=== PATIENT | male | born 1945 | race Caucasian/White ===

== ENCOUNTER 2024-07-22 12:48 | Day surgery (SDC) | payer MEDICARE, OTHER, SELFPAY ==
[2024-07-22] VITALS (14 sets, daily range): BP systolic 131–168; BP diastolic 81–129; BMI 48.3
[2024-07-22] MEDS: NSS 458 ML IV (14:28)
[2024-07-22 16:15] LABS: ACT-LR - POC 311 Seconds (116-155)
--- NOTE | 2024-07-22 16:59 | ITS.CL.CATH ---
Litigation Legal Secretary - Catheterization
Cardiac Catheterization
Procedure Report:
CARDIAC CATHETERIZATION REPORT
Date of Procedure: 07/22/2024
Referring: Rboi De La Torre D.O.
INDICATION: Multiple CAD risk factors, abnormal stress test (apical ischemia), history of neuropathy with concern for impaired anginal warning system.
PROCEDURE:
1. Coronary angiography.
2. Successful IFR of OM1.
3. Successful IFR of proximal LAD.
A total of 42 minutes of procedural/moderate sedation was utilized. An independent paramedical aide was present to assist with and help manage the patient's level of consciousness and physiologic status.
ACCESS:
1. 6 [place] right radial artery using modified Seldinger technique.
2. 6 [place] right common femoral artery using a modified Seldinger technique with a micropuncture kit under ultrasound guidance.
CATHETERS:
1. 5 [place] JR4.
2. 5 [place] JL 4.
3. 6 [place] EBU 4.5 guiding catheter.
HEMODYNAMIC DATA
Weight (kg): 152.4
AO (s/d/x, mmHg): 130/81/95
LV (s/x mmHg): Not obtained.
LEFT VENTRICULOGRAPHY: Not performed.
CORONARY ANGIOGRAPHY
Dominance: Right.
Left Main: Normal size, bifurcating vessel. There is no coronary artery disease.
LAD: Normal size vessel giving rise to 2 significant diagonals. There is a 60-70% lesion in the proximal vessel. The apical LAD is chronically totally occluded.
Ramus: Congenitally absent.
Circumflex: Large size, nondominant vessel giving rise to 1 large marginal before terminating is a large posterolateral branch. There is a 60% lesion in the midportion of OM1.
RCA: Large size, dominant vessel. There are luminal irregularities including a 30% lesion in the ostium of the RPDA and a 30% lesion in the mid RPDA.
INTERVENTION(S)
1. Successful IFR of the 60% mid OM1 lesion, demonstrating nonocclusive disease (IFR = 0.95).
2. Successful IFR of the 60-70% lesion in the proximal LAD, demonstrating borderline disease (IFR = 0.90).
Narrative:
The decision was made to perform physiologic testing. The diagnostic catheter was removed over a wire and exchanged for a(n) 6 [place] EBU 4.5 guiding catheter. The guiding catheter was advanced into the ascending aorta and seated in the left main
coronary artery. Additional heparin was given to obtain an ACT greater than 250 seconds. An iFR wire was zeroed outside of the body, then inserted into the guiding sheath. The wire was advanced and the transducer was normalized just outside of the
guiding catheter tip. The wire was advanced into the distal OM1, beyond the 60% lesion. Three iFR measurements were taken. The lesion was determined to be nonocclusive (0.95).
We then turned our attention to the 60-70% lesion in the proximal LAD. The IFR wire was redirected into the LAD and renormalized with the pressure sensor in the left main coronary artery. The wire was then advanced into the mid LAD. After
flushing the catheter, the immediate IFR reading was quite significant, approximately 0.82. After allowing for equilibration, the resting IFR was significantly improved, now 0.90.
Closure Device: Vascular band for the right radial artery, 6 [place] Angio-Seal for the right common femoral artery.
Radiation (mGy): 1331.12
DAP (cm2.Gy): 108.51
Fluoroscopy time (minutes): 12.4
CONCLUSIONS
1. 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
LAD lesion (IFR = 0.90).
2. Radial artery spasm requiring femoral artery access.
RECOMMENDATIONS:
1. Expectant management after cardiac catheterization via right radial and right femoral approach.
2. Limited weight bearing on the right wrist for one week.
3. Continue home antithrombotic therapy with rivaroxaban.
4. Aggressive secondary prevention. Increase rosuvastatin to 20 mg daily. Goal LDL <55.
5. Continue OMT/GDMT with atenolol.
6. If the patient were to develop significant anginal symptoms, we could potentially repeat cardiac catheterization with provocative testing of the LAD, though no current indication for PCI.
7. Stable for outpatient follow-up.
Copy to: Robi De La Torre D.O., Kody Arora M.D.
Albert Saavedra DO, FACC, FACP
--- NOTE | 2024-07-22 19:21 | PTCARENOTE ---
1814: Patient transfered from [facility] for remained of 4 hour interval s/p LHC with IFR. Per computer lab para professional RN, d/c paperwork reviewed with patient prior to coming to IVU. Pt AOx4, SB/NSR 50s-60s on tele, SBP 140s-150s, RA satting high 90s. R fem site CDI,
patient bedrest until 193. R radial TR band in place, air can start to be removed at 1830 per order. Pt DTV at this time. All needs met, call whittington within reach.
~[id number]: Air removed from TR band per protocol. VSS at this time. Handoff report given to nightshift RN.
--- NOTE | 2024-07-22 21:37 | PTCARENOTE ---
Assumed care of patient at change of shift w/ spouse at bedside. Patient AAOx3, Sating 97% RA. Tele monitor shows SB/NSR w/ BBBC and PVCs, HR in the 50-60's at rest. Patient denies any SOB or chest discomfort at this time. TR band removed at approx
19:45 w/out difficulty, and dry dressing applied. Right radial pulse +. Right groin site dressing intact, site soft and no hematoma present at this time. B/l DP pulses weak. Patient at baseline w/ neuropathy in b/l lower extremity. Previous RN gave
patient discharge instructions. Patient and spouse have no q's at this time. This RN educated patient on activity restrictions and patient verbalized understanding. IV and tele pack removed. All belongings sent home w/ patient. Patient escorted out
via wheel chair. Patient ambulates w/ personal cane. Denied any dizziness. Voided w/out difficulty.
== END 2024-07-22 20:50 | disposition home or self-care (01) ==
LOC: CATH 12:48
PROVIDERS: ATTENDING PHYSICIAN Internal Medicine Cardiovascular Disease; FAMILY PHYSICIAN Family Medicine; OTHER PHYSICIAN Internal Medicine Cardiovascular Disease
DX: I25.10 Atherosclerotic heart disease of native coronary artery without angina pectoris (principal); R94.39 Abnormal result of other cardiovascular function study; G62.9 Polyneuropathy, unspecified; Z79.01 Long term (current) use of anticoagulants; I44.2 Atrioventricular block, complete; I10 Essential (primary) hypertension; E78.5 Hyperlipidemia, unspecified; I45.10 Unspecified right bundle-branch block; I25.82 Chronic total occlusion of coronary artery; Z79.02 Long term (current) use of antithrombotics/antiplatelets; Z79.890 Hormone replacement therapy; Z86.711 Personal history of pulmonary embolism
CPT/HCPCS: 93799 ×2; 85347; 93454; 99152; 99153; C1769; C1887; C1894; Q9967